=== PATIENT | male | born 1960 ===

== ENCOUNTER 2017-01-27 13:20 | Outpatient (RCR) | payer MEDICARE, OTHER | END 2017-02-22 | disposition home or self-care (01) | LOC: PTY 13:20 | DX: M76.72 Peroneal tendinitis, left leg (principal); M25.579 Pain in unspecified ankle and joints of unspecified foot; M21.372 Foot drop, left foot; Z86.73 Personal history of transient ischemic attack (TIA), and cerebral infarction without residual deficits; S93.409D Sprain of unspecified ligament of unspecified ankle, subsequent encounter; X58.XXXD Exposure to other specified factors, subsequent encounter | CPT/HCPCS: 97110; 97140; 97162; G0283; G8978; G8979 ==